=== PATIENT | female | born 1990 | race Caucasian/White ===

== ENCOUNTER 2018-11-20 16:25 | Emergency (ER) | payer MEDICAID ==
[2018-11-20] MEDS: ONDANSETRON (ODT) 4 MG TAB ODT (17:09)
[2018-11-20 18:13] LABS: ADD UMIC YES; UR ASCORBIC ACID NEGATIVE (NEGATIVE); UR BACTERIA FEW /HPF (NONE SEEN); UR BILIRUBIN (Dip) NEGATIVE (NEGATIVE); UR BLOOD (Dip) NEGATIVE (NEGATIVE); UR CLARITY SLIGHTLY CLOUDY (CLEAR); UR COLOR YELLOW (YELLOW); UR GLUCOSE (Dip) NEGATIVE (NEGATIVE); UR KETONES (Dip) NEGATIVE (NEGATIVE); UR LEUKOCYTE ESTERASE (Dip) 3+ Leu/ul (NEGATIVE); UR NITRITE (Dip) NEGATIVE (NEGATIVE); UR RBC 7 /HPF (0-5); UR SPECIFIC GRAVITY (Dip) 1.018 (1.003-1.030); UR SQUAMOUS EPITHELIAL CELL MANY /HPF (FEW); UR TOTAL PROTEIN (Dip) NEGATIVE (NEGATIVE); UR UROBILINOGEN (Dip) 1+ mg/dL (NEGATIVE); UR WBC 15 /HPF (0-5)
== END 2018-11-20 18:56 | disposition home or self-care (01) ==
LOC: FTE 16:25
DX: M79.671 Pain in right foot (principal); M79.672 Pain in left foot; R19.7 Diarrhea, unspecified; N39.0 Urinary tract infection, site not specified; E11.9 Type 2 diabetes mellitus without complications
CPT/HCPCS: 81001; 81025; 82962; 99283

== ENCOUNTER 2019-01-17 10:51 | Emergency (ER) | payer SELFPAY, MEDICAID | END 2019-01-17 13:16 | disposition left against medical advice (07) | LOC: FTE 10:51 | DX: Z53.21 Procedure and treatment not carried out due to patient leaving prior to being seen by health care provider (principal) ==

== ENCOUNTER 2019-01-21 12:06 | Emergency (ER) | payer MEDICAID ==
[2019-01-21] MEDS: LIDOCAINE 1% (MDV) 20 ML INJ SC (13:27)
== END 2019-01-21 13:54 | disposition home or self-care (01) ==
LOC: FTE 12:06
DX: T17.1XXA Foreign body in nostril, initial encounter (principal); J34.0 Abscess, furuncle and carbuncle of nose; E11.9 Type 2 diabetes mellitus without complications; X58.XXXA Exposure to other specified factors, initial encounter; Y92.9 Unspecified place or not applicable
CPT/HCPCS: 30300; 99282-25

== ENCOUNTER 2019-05-07 16:52 | Emergency (ER) | payer MEDICAID ==
[2019-05-07] MEDS: IBUPROFEN 600 MG TAB PO (17:37)
== END 2019-05-07 18:32 | disposition home or self-care (01) ==
LOC: FTE 16:52
DX: S39.92XA Unspecified injury of lower back, initial encounter (principal); E11.9 Type 2 diabetes mellitus without complications; W01.0XXA Fall on same level from slipping, tripping and stumbling without subsequent striking against object, initial encounter; Y92.9 Unspecified place or not applicable
CPT/HCPCS: 36415; 72100; 84703; 99284-25

== ENCOUNTER 2019-05-28 16:58 | Emergency (ER) | payer MEDICAID ==
[2019-05-28] MEDS: IBUPROFEN 800 MG TAB PO (18:31)
== END 2019-05-28 19:16 | disposition home or self-care (01) ==
LOC: FTE 16:58
DX: M79.672 Pain in left foot (principal); E11.9 Type 2 diabetes mellitus without complications
CPT/HCPCS: 73610; 73630-LT; 99283-25